=== PATIENT | female | born 1955 | race Caucasian/White ===

== ENCOUNTER → 2016-08-13 | Outpatient (CLI) | payer BC | END | disposition home or self-care (01) | LOC: C.LABSPEC 18:53 | PROVIDERS: ATTEND Nurse Practitioner Family | DX: L72.3 Sebaceous cyst (principal) ==

== ENCOUNTER → 2016-10-29 | Outpatient (CLI) | payer BC | END | disposition home or self-care (01) | LOC: C.PATHSPEC 17:38 | PROVIDERS: ATTEND Plastic Surgery | DX: L72.3 Sebaceous cyst (principal) ==

== ENCOUNTER 2017-10-24 04:31 | Emergency (ER) | payer BC, OTHER ==
[~2017-10-24] VITALS: Ht 157.5 cm; Wt 62.9 kg
[2017-10-24 04:36] VITALS: TEMP 36.5; Ht 157.5 cm; Wt 62.9 kg
--- NOTE | 2017-10-24 05:54 | EMERGENCY ROOM VISIT NOTE ---
History Report prepared by Tj: Arslan Carreon Under the Supervision of: Dr. Anahy Huitron D.O. First contact with patient: 05:05 Chief Complaint: BITE Stated Complaint: CAT BITE ON RIGHT HAND History of Present Illness The patient is a 62 year old female who presents to the Emergency Room with complaints of persistent right hand swelling secondary to a cat bite that occurred at 1999 last night. She states that she was playing with her cat when he bit her. She states that she woke up with right hand pain. She notes her cat has bitten her in the past. She states that she normally washes the bites with detergent, though she only put hydrogen peroxide on it this time. She states that she can hardly move her right fingers. She states the pain is radiating to her right forearm. She has taken two Aleve. Source of History: patient Onset: 1999 last night Position: hand (right) Quality: other (swelling) Timing: other (persistent) Note: Notes right hand pain, inability to move fingers, and right forearm pain. Review of Systems See HPI for pertinent positives & negatives. A total of 6 systems reviewed and were otherwise negative. Family History No pertinent family history Social History Smoking Status: Never Smoker Smokeless Tobacco Use: No Drug Use: none Marital Status: Housing Status: lives with significant other Current/Historical Medications Scheduled Amoxicillin & Pot Clavulanate (Augmentin 875-125 mg), 875 MG PO BID Amoxicillin & Pot Clavulanate (Augmentin 875-125 mg), 1 TAB PO BID Allergies Coded Allergies: No Known Allergies (Unverified , 10/27/17) Physical Exam Vital Signs Date Time Temp Pulse Resp B/P (MAP) Pulse Ox O2 Delivery O2 Flow Rate FiO2 10/24/17 08:06 80 17 128/62 99 Room Air 10/24/17 07:15 64 18 132/80 95 10/24/17 04:36 36.5 70 18 125/84 96 Room Air Physical Exam GENERAL: alert, well appearing, well nourished, no distress, non-toxic LUNGS: Clear to auscultation. Normal chest wall mechanics HEART: no murmurs, S1 normal and S2 normal ABDOMEN: abdomen soft, non-tender, normo-active bowel sounds, no masses, no rebound or guarding. SKIN: no rashes and no bruising UPPER EXTREMITIES: Obvious swelling noted to dorsum of right hand, single small puncture mohini, decreased ROM secondary to pain. LOWER EXTREMITIES: No pitting edema. NEURO EXAM: Normal sensorium, cranial nerves II-XII grossly intact, normal speech, no gross weakness of arms, no gross weakness of legs. Medical Decision & Procedures ER Provider Diagnostic Interpretation: Radiology results have been interpreted by the radiologist and reviewed by me. R LIZA MIN 3 VIEWS ROUTINE CLINICAL HISTORY: cat bite pain. Edema. COMPARISON: None. DISCUSSION: Mild degenerative change throughout the right hand and wrist. Dorsal soft tissue edema. No acute bony abnormality. Cortical margins are intact. IMPRESSION: Dorsal soft tissue edema. No acute bony abnormality. The above report was generated using voice recognition software. It may contain grammatical, syntax or spelling errors. Electronically signed by: Mohini Marie M.D. 10/24/2017 6:32 AM Dictated Date/Time: 10/24/2017 6:31 AM Laboratory Results 10/24/17 06:00 Red Blood Count 4.81, Mean Corpuscular Volume 86.9, Mean Corpuscular Hemoglobin 29.7, Mean Corpuscular Hemoglobin Concent 34.2, Mean Platelet Volume 10.4, Neutrophils (%) (Auto) 60.8, Lymphocytes (%) (Auto) 29.2, Monocytes (%) (Auto) 7.6, Eosinophils (%) (Auto) 1.9, Basophils (%) (Auto) 0.3, Neutrophils # (Auto) 5.44, Lymphocytes # (Auto) 2.61, Monocytes # (Auto) 0.68, Eosinophils # (Auto) 0.17, Basophils # (Auto) 0.03 10/24/17 06:00 Test 10/24/17 06:00 White Blood Count 8.95 K/uL (4.8-10.8) Red Blood Count 4.81 M/uL (4.2-5.4) Hemoglobin 14.3 g/dL (12.0-16.0) Hematocrit 41.8 % (37-47) Mean Corpuscular Volume 86.9 fL (80-100) Mean Corpuscular Hemoglobin 29.7 pg (25-34) Mean Corpuscular Hemoglobin Concent 34.2 g/dl (32-36) Platelet Count 236 K/uL (130-400) Mean Platelet Volume 10.4 fL (7.4-10.4) Neutrophils (%) (Auto) 60.8 % Lymphocytes (%) (Auto) 29.2 % Monocytes (%) (Auto) 7.6 % Eosinophils (%) (Auto) 1.9 % Basophils (%) (Auto) 0.3 % Neutrophils # (Auto) 5.44 K/uL (1.4-6.5) Lymphocytes # (Auto) 2.61 K/uL (1.2-3.4) Monocytes # (Auto) 0.68 K/uL (0.11-0.59) Eosinophils # (Auto) 0.17 K/uL (0-0.5) Basophils # (Auto) 0.03 K/uL (0-0.2) RDW Standard Deviation 43.9 fL (36.4-46.3) RDW Coefficient of Variation 13.8 % (11.5-14.5) Immature Granulocyte % (Auto) 0.2 % Immature Granulocyte # (Auto) 0.02 K/uL (0.00-0.02) Anion Gap 7.0 mmol/L (3-11) Est Creatinine Clear Calc Drug Dose 72.9 ml/min Estimated GFR () 107.1 Estimated GFR (Non- 92.4 BUN/Creatinine Ratio 17.1 (10-20) Calcium Level 9.1 mg/dl (8.5-10.1) Chemistry Specimen Hemolysis Laboratory results per my review. Medications Administered Medications (Trade) Dose Ordered Sig/Prem Route Start Time Stop Time Status Last Admin Dose Admin Ampicillin Sodium/ Sulbactam Sodium 3000 mg/Sodium Chloride 108 ml @ 200 mls/hr ONE ONCE IV 10/24/17 06:00 10/24/17 06:32 DC 10/24/17 06:20 200 MLS/HR ED Course 0541: The patient was evaluated in room A3. A complete history and physical exam was performed. 0600: Ordered Ampicillin Sodium/Sulbactam Sodium 3,000 mg/Sodium Chloride 108 ml @ 200 mls/hr IV 0720: I reassessed the patient at this time. I performed a bedside US. Findings showed no abscess or fluid collection. I discussed the results and treatment plan with the patient. I answered all pertaining questions that she had. She expressed understanding and verbalized agreement. The patient will be discharged home. Medical Decision Differential diagnoses include: wound infection, fracture, tendon injury, contusion, and cellulitis. Patient well-appearing here, with improved pain control pain patient had improved range of motion testing of the right hand. No overlying erythema or evidence of ascending lymphangitis. Patient afebrile here. Discussed with patient need for close follow-up given that this is her dominant hand and that this bite is a high risk of infection. Patient given IV Unasyn here and started on oral Augmentin. Labs otherwise reassuring. No evidence of additional occult trauma or foreign body on x-ray. No evidence on bedside ultrasound of drainable fluid collection. Discussed with patient symptoms to watch and return for, she verbalized understanding was agreeable with plan. I do not suspect tenosynovitis, abscess, deep space hand infection, overt cellulitis, ascending lymphangitis. Medication Reconcilliation Current Medication List: was personally reviewed by me Blood Pressure Screening Patient's blood pressure: Normal blood pressure Impression Primary Impression: Cat bite Scribe Attestation The scribe's documentation has been prepared under my direction and personally reviewed by me in its entirety. I confirm that the note above accurately reflects all work, treatment, procedures, and medical decision making performed by me. Departure Information Dispostion Home / Self-Care Prescriptions Amoxicillin & Pot Clavulanate (Augmentin 875-125 mg) 1 Tab Tab 875 MG PO BID for 7 Days, TAB Prov: Anahy Huitron DO 10/24/17 Referrals No Doctor, Assigned (PCP) Forms HOME CARE DOCUMENTATION FORM, IMPORTANT VISIT INFORMATION Patient Instructions ED Bite Cat, My [facility] Additional Instructions Please take the antibiotics as prescribed. Please consider using a probiotic or eating yogurt daily while on the antibiotic. Please drink plenty of water. You may use Tylenol and ibuprofen as needed for pain. Do not take ibuprofen on an empty stomach. The wound needs to be rechecked in 48 hours. If you noticed increased swelling, increased pain, increasing redness or redness streaking up into your arm, heavy drainage from the wound site, develop fevers, dizziness, nausea or vomiting, or you have any other new concerns please return to the ER immediately. Problem Qualifiers Primary Impression: Cat bite Encounter type: initial encounter Qualified Codes: W55.01XA - Bitten by cat , initial encounter
[2017-10-24] MEDS ORDERED: AMPICILLIN/SULBACTAM SOD INJ 3,000 MG in SODIUM CHLORIDE 0.9% 100ML 100 ML IV ONE (06:00)
[2017-10-24 06:19] LABS: BASO % 0.3 %; BASO ABS # 0.03 K/uL (0-0.2); EOS % 1.9 %; EOS ABS # 0.17 K/uL (0-0.5); HEMATOCRIT 41.8 % (37-47); HEMOGLOBIN 14.3 g/dL (12.0-16.0); IG# 0.02 K/uL (0.00-0.02); LYMPH % 29.2 %; LYMPH ABS # 2.61 K/uL (1.2-3.4); MEAN CELL VOLUME 86.9 fL (80-100); MEAN CORPUSCULAR HEMOGLOBIN 29.7 pg (25-34); MEAN CORPUSCULAR HGB CONC 34.2 g/dl (32-36); MEAN PLATELET VOLUME 10.4 fL (7.4-10.4); MONO % 7.6 %; MONO ABS # 0.68 K/uL (0.11-0.59); NEUT % 60.8 %; NEUT ABS # 5.44 K/uL (1.4-6.5); PLATELET COUNT 236 K/uL (130-400); RED CELL DISTRIBUTION WIDTH CV 13.8 % (11.5-14.5); RED CELL DISTRIBUTION WIDTH SD 43.9 fL (36.4-46.3); WHITE BLOOD COUNT 8.95 K/uL (4.8-10.8)
--- NOTE | 2017-10-24 06:33 | DIAGNOSTIC IMAGING REPORT ---
R HAND MIN 3 VIEWS ROUTINE CLINICAL HISTORY: cat bite pain. Edema. COMPARISON: None. DISCUSSION: Mild degenerative change throughout the right hand and wrist. Dorsal soft tissue edema. No acute bony abnormality. Cortical margins are intact. IMPRESSION: Dorsal soft tissue edema. No acute bony abnormality. The above report was generated using voice recognition software. It may contain grammatical, syntax or spelling errors. Electronically signed by: Frank Marie M.D. 10/24/2017 6:32 AM Dictated Date/Time: 10/24/2017 6:31 AM
[2017-10-24 06:37] LABS: CALCIUM 9.1 mg/dl (8.5-10.1); CREATININE 0.68 mg/dl (0.60-1.20); POTASSIUM 4.1 mmol/L (3.5-5.1)
[2017-10-24] MEDS ORDERED: AMOX875T PO (07:39)
[2017-10-24 08:06] VITALS: BP 128/62; PULSE 80; O2SAT 99
== END 2017-10-24 08:08 | disposition home or self-care (01) ==
LOC: C.EDB 04:33 → C.EDA 08:08
DX: S61.451A Open bite of right hand, initial encounter (principal); W55.01XA Bitten by cat, initial encounter

== ENCOUNTER 2017-10-25 11:33 | Emergency (ER) | payer OTHER ==
[~2017-10-25] VITALS: Ht 157.5 cm; Wt 64.1 kg
[~2017-10-25 11:33] MED LIST: AMOX875T PO
[2017-10-25 11:37] VITALS: TEMP 36.5; Ht 157.5 cm; Wt 64.1 kg
[2017-10-25] MEDS ORDERED: AMPICILLIN/SULBACTAM SOD INJ 3,000 MG in SODIUM CHLORIDE 0.9% 100ML 100 ML IV STA (12:09)
[2017-10-25 12:32] LABS: BASO % 0.4 %; BASO ABS # 0.03 K/uL (0-0.2); EOS % 1.3 %; HEMATOCRIT 40.2 % (37-47); HEMOGLOBIN 13.9 g/dL (12.0-16.0); IG# 0.01 K/uL (0.00-0.02); LYMPH % 32.9 %; LYMPH ABS # 2.56 K/uL (1.2-3.4); MEAN CELL VOLUME 86.3 fL (80-100); MEAN CORPUSCULAR HEMOGLOBIN 29.8 pg (25-34); MEAN CORPUSCULAR HGB CONC 34.6 g/dl (32-36); MEAN PLATELET VOLUME 10.3 fL (7.4-10.4); MONO % 11.3 %; MONO ABS # 0.88 K/uL (0.11-0.59); NEUT ABS # 4.19 K/uL (1.4-6.5); PLATELET COUNT 234 K/uL (130-400); RED CELL DISTRIBUTION WIDTH CV 13.7 % (11.5-14.5); RED CELL DISTRIBUTION WIDTH SD 43.2 fL (36.4-46.3); WHITE BLOOD COUNT 7.77 K/uL (4.8-10.8)
[2017-10-25 12:42] LABS: CALCIUM 9.3 mg/dl (8.5-10.1); CREATININE 0.67 mg/dl (0.60-1.20)
--- NOTE | 2017-10-25 15:41 | DIAGNOSTIC IMAGING REPORT ---
RIGHT HAND ULTRASONOGRAPHY CLINICAL HISTORY: Calcified. Swelling. Cellulitis. Possible abscess. COMPARISON STUDY: Conventional radiographic study dated 10/24/2017 FINDINGS: There is soft tissue edema over the dorsal aspect of the hand. There are no fluid collections to indicate a focal abscess. IMPRESSION: Dorsal soft tissue edema consistent with the clinical history of a cellulitis. No ultrasonographic evidence of a focal abscess Electronically signed by: Amador Wagner M.D. 10/25/2017 3:40 PM Dictated Date/Time: 10/25/2017 3:39 PM
--- NOTE | 2017-10-25 16:07 | EMERGENCY ROOM VISIT NOTE ---
ED Visit Note First contact with patient: 12:00 CHIEF COMPLAINT: Infection of the right hand HISTORY OF PRESENT ILLNESS: This 62-year-old female patient presents to the emergency department, ambulatory, complaining of worsening redness and swelling of the right hand and radiating up toward the arm. The patient was seen here 2 days ago for a cat bite on the right hand. At that time, she had lab work drawn and was given an IV dose of Unasyn. She was discharged home on Augmentin. She states she has taken 3 doses of the antibiotic, and followed up with her PCP today and noted worsening swelling and redness radiating up the wrist. She was encouraged to come to the emergency department for reevaluation and IV antibiotics. The area has become red, warm, and very painful. The patient denies fever, chills, nausea, or loss of appetite. Movement of the wrist and hand is moderately decreased because of the pain. The patient's tetanus shot is up to date. REVIEW OF SYSTEMS: A 10 system review of systems was performed with positives and pertinent negatives listed in the history of present illness. All other systems were reviewed and are negative. ALLERGIES: None MEDICATIONS: Augmentin PMH: None SOCIAL HISTORY: The patient lives locally with family. She denies drug, tobacco use. She does drink at least one glass of wine per night. PHYSICAL EXAM: Vital Signs: Reviewed Nurse's notes, Temperature 36.5C, vital signs stable, however BP elevated. GENERAL: This is a 62-year-old white female, in no acute distress, is non toxic in appearance, well-developed, well- nourished. SKIN: The right hand, wrist, and distal forearm is red, warm, very tender, and swollen. There is no lymphangitic streaking. There is no discharge. There is no fluctuance. There is mild induration. HEART: Regular rate and rhythm without murmur, gallop, or rub. LUNGS: Clear to auscultation bilaterally without wheezes, rales, or rhonchi. NEURO: Alert and oriented to person, place, and time. Normal sensation to light and sharp touch. Capillary reflex less than 2 seconds. Peripheral pulses 2 + bilaterally. RADIOLOGY: RIGHT HAND ULTRASONOGRAPHY CLINICAL HISTORY: Calcified. Swelling. Cellulitis. Possible abscess. COMPARISON STUDY: Conventional radiographic study dated 10/24/2017 FINDINGS: There is soft tissue edema over the dorsal aspect of the hand. There are no fluid collections to indicate a focal abscess. IMPRESSION: Dorsal soft tissue edema consistent with the clinical history of a cellulitis. No ultrasonographic evidence of a focal abscess Electronically signed by: Amador Wagner M.D. 10/25/2017 3:40 PM Dictated Date/Time: 10/25/2017 3:39 PM EMERGENCY DEPARTMENT COURSE: I examined the patient. She presents with a cellulitic infection following cat bite. She was recently seen here and given IV Unasyn and discharged on Augmentin. Her symptoms have been worsening despite the antibiotics, however she continues to deny any systemic symptoms including fever, chills, nausea, vomiting, loss of appetite. She denies any body aches. IV access obtained, repeat labs drawn. The patient was given a repeat dose of 3 g Unasyn. The redness and swelling was reassessed and remains at approximately the same level after antibiotics. A line was drawn at the edge of the redness. The patient did request further imaging to rule out abscess. An ultrasound was performed and reviewed by myself and radiologist as above. There is no abscess noted. The patient's labs showed a decrease in white blood cell count from [id number]. Her renal function and electrolytes were normal. The patient was reassessed after ultrasound and the redness and swelling does seem to have decreased. I discussed the findings in case with Dr. Larios. With these findings and given the lack of systemic symptoms, we agreed on the option to discharge the patient with her IV and return within 24 hours for recheck. I did offer this option, discontinuing the IV prior to discharge, or considering admission. The patient does agree to discharge with the IV and return. She is given strict return precautions, and encouraged to return sooner if she experiences any fever, body aches, or other worsening symptoms. Discharge instructions reviewed, patient was discharged home in good condition. I attest that I have personally reviewed the patient's current medication list. Blood Pressure Screening: Patient was found to have a slightly elevated blood pressure due to circumstances. I do not believe that the patient requires hypertension monitoring. Differential diagnosis includes cellulitis, abscess, DVT, superficial thrombus, septic joint, necrotizing fasciitis, burn, dermatitis, impetigo, erythema multiforme, bite, osteomyelitis, Esquivel-Dirk Syndrome, gangrene, malignancy , and others DIAGNOSIS: Cellulitis of the right hand, cat bite The chart was completed utilizing [employer] voice recognition software. Grammatical errors, random word insertions, pronoun errors, and incomplete sentences are an occasional consequence of this system due to software limitations, ambient noise, and hardware issues. Any formal questions or concerns about the content, text, or information contained within the body of this dictation should be directly addressed to the provider for clarification. Current/Historical Medications Scheduled Amoxicillin & Pot Clavulanate (Augmentin 875-125 mg), 875 MG PO BID Allergies Coded Allergies: No Known Allergies (Unverified , 10/25/17) Vital Signs Date Time Temp Pulse Resp B/P (MAP) Pulse Ox O2 Delivery O2 Flow Rate FiO2 10/25/17 16:36 66 16 177/101 97 10/25/17 15:45 68 15 176/101 98 Room Air 10/25/17 14:02 76 20 170/118 96 10/25/17 11:37 36.5 76 20 164/98 97 Room Air Laboratory Results 10/25/17 12:12 Red Blood Count 4.66, Mean Corpuscular Volume 86.3, Mean Corpuscular Hemoglobin 29.8, Mean Corpuscular Hemoglobin Concent 34.6, Mean Platelet Volume 10.3, Neutrophils (%) (Auto) 54.0, Lymphocytes (%) (Auto) 32.9, Monocytes (%) (Auto) 11.3, Eosinophils (%) (Auto) 1.3, Basophils (%) (Auto) 0.4, Neutrophils # (Auto ) 4.19, Lymphocytes # (Auto) 2.56, Monocytes # (Auto) 0.88, Eosinophils # (Auto ) 0.10, Basophils # (Auto) 0.03 10/25/17 12:12 Test 10/25/17 12:12 White Blood Count 7.77 K/uL (4.8-10.8) Red Blood Count 4.66 M/uL (4.2-5.4) Hemoglobin 13.9 g/dL (12.0-16.0) Hematocrit 40.2 % (37-47) Mean Corpuscular Volume 86.3 fL (80-100) Mean Corpuscular Hemoglobin 29.8 pg (25-34) Mean Corpuscular Hemoglobin Concent 34.6 g/dl (32-36) Platelet Count 234 K/uL (130-400) Mean Platelet Volume 10.3 fL (7.4-10.4) Neutrophils (%) (Auto) 54.0 % Lymphocytes (%) (Auto) 32.9 % Monocytes (%) (Auto) 11.3 % Eosinophils (%) (Auto) 1.3 % Basophils (%) (Auto) 0.4 % Neutrophils # (Auto) 4.19 K/uL (1.4-6.5) Lymphocytes # (Auto) 2.56 K/uL (1.2-3.4) Monocytes # (Auto) 0.88 K/uL (0.11-0.59) Eosinophils # (Auto) 0.10 K/uL (0-0.5) Basophils # (Auto) 0.03 K/uL (0-0.2) RDW Standard Deviation 43.2 fL (36.4-46.3) RDW Coefficient of Variation 13.7 % (11.5-14.5) Immature Granulocyte % (Auto) 0.1 % Immature Granulocyte # (Auto) 0.01 K/uL (0.00-0.02) Anion Gap 5.0 mmol/L (3-11) Est Creatinine Clear Calc Drug Dose 74.6 ml/min Estimated GFR () 107.7 Estimated GFR (Non- 92.9 BUN/Creatinine Ratio 19.2 (10-20) Calcium Level 9.3 mg/dl (8.5-10.1) Medications Administered Medications (Trade) Dose Ordered Sig/Prem Route Start Time Stop Time Status Last Admin Dose Admin Ampicillin Sodium/ Sulbactam Sodium 3000 mg/Sodium Chloride 108 ml @ 200 mls/hr ONE STAT IV 10/25/17 12:09 10/25/17 12:41 DC 10/25/17 12:09 200 MLS/HR Departure Information Impression Primary Impression: Cat bite Additional Impression: Cellulitis Dispostion Home / Self-Care Condition GOOD Referrals Norris Joseph M.D. (PCP) Patient Instructions ED Infec Skin Cellulitis, My [facility] Additional Instructions You were seen in the emergency department today for cellulitis from a cat bite. You were given a second dose of IV antibiotics. Continue Augmentin as prescribed. Keep the arm elevated and you may use ice to help with swelling. Remove your arm from the sling several times per day to stretch the extremities and move the joints. Ibuprofen(Motrin, Advil) may be used for fever or pain. Use 600mg every six hours as needed. Take with food. Avoid using more than 2400mg in a 24 hour period. Do not use 2400mg per day for more than three consecutive days without physician direction. Prolonged inappropriate use can lead to stomach upset or ulcers. (AND/OR) Acetaminophen(Tylenol) may be used for fever or pain. Use 1000mg every six hours as needed. Avoid using more than 3000mg in a 24 hour period. Keep the IV in place and attempt moving the wrist and hand more than necessary. No substances through the IV unless performed at the ED. Follow-up within 24 hours in the emergency department for reevaluation. As discussed, you should come in after 11 AM so I can reassess the injury. Problem Qualifiers Primary Impression: Cat bite Encounter type: initial encounter Qualified Codes: W55.01XA - Bitten by cat , initial encounter Additional Impression: Cellulitis Site of cellulitis: extremity Site of cellulitis of extremity: upper extremity Laterality: right Qualified Codes: L03.113 - Cellulitis of right upper limb
[2017-10-25 16:36] VITALS: BP 177/101; PULSE 66; O2SAT 97
[2017-10-26] MEDS ORDERED: AMOX875T PO (12:56)
== END 2017-10-25 16:45 | disposition home or self-care (01) ==
LOC: C.EDB 11:35 → C.EDD 16:45
DX: L03.113 Cellulitis of right upper limb (principal); W55.01XA Bitten by cat, initial encounter

== ENCOUNTER 2017-10-26 11:39 | Emergency (ER) | payer OTHER ==
[2017-10-26 11:43] VITALS: TEMP 36.6
[2017-10-26] MEDS ORDERED: AMPICILLIN/SULBACTAM SOD INJ 3,000 MG in SODIUM CHLORIDE 0.9% 100ML 100 ML IV STA (12:12)
[2017-10-26] MEDS ORDERED: AMOX875T PO (12:56)
--- NOTE | 2017-10-26 13:00 | EMERGENCY ROOM VISIT NOTE ---
ED Visit Note First contact with patient: 11:53 CHIEF COMPLAINT: Infection of the right hand HISTORY OF PRESENT ILLNESS: This 62-year-old female patient presents to the emergency department, ambulatory, complaining of ongoing redness and swelling of the right hand. The patient was seen here yesterday and had IV antibiotics due to the infection from a cat bite. She was sent home with the IV in place and advised to return today for a wound recheck and another dose of IV antibiotics. The redness remains, however is improved from yesterday. The swelling and pain has also improved. The patient is getting more range of motion in her fingers, hand, and wrist. The patient has continued Augmentin as prescribed. REVIEW OF SYSTEMS: A 10 system review of systems was performed with positives and pertinent negatives listed in the history of present illness. All other systems were reviewed and are negative. ALLERGIES: None MEDICATIONS: Augmentin PMH: Cellulitis SOCIAL HISTORY: The patient lives locally with family. She denies drug, tobacco use. She admits to occasional alcohol use. PHYSICAL EXAM: Vital Signs: Reviewed Nurse's notes, Temperature 36.6C, vital signs stable. GENERAL: This is a 62-year-old white female, in no acute distress , is non toxic in appearance, well-developed, well-nourished. SKIN: The right hand is slightly less erythematous, warm, and tender than yesterday. The swelling has improved. There is no lymphangitic streaking. There is no discharge. There is no fluctuance. There is no induration. HEART: Regular rate and rhythm without murmur, gallop, or rub. LUNGS: Clear to auscultation bilaterally without wheezes, rales, or rhonchi. NEURO: Alert and oriented to person, place, and time. Normal sensation to light and sharp touch. Capillary reflex less than 2 seconds. Peripheral pulses 2 + bilaterally. EMERGENCY DEPARTMENT COURSE: I examined the patient. She was given a repeat dose of 3 g Unasyn while here in the emergency department. She was monitored for approximately 45 minutes after antibiotics. The swelling and redness does seem to have improved mildly while she is here. She would like to keep the IV in place for another day and will return tomorrow for repeat follow-up. I do feel that this is reasonable given the severity of the infection. It is improving, however the patient is concerned that p.o. antibiotics will not be enough. Discharge instructions reviewed, the patient was discharged home in good condition. I attest that I have personally reviewed the patient's current medication list. Blood Pressure Screening: Patient was found to have a slightly elevated blood pressure due to circumstances. I do not believe that the patient requires hypertension monitoring. Differential diagnosis includes cellulitis, abscess, DVT, superficial thrombus, septic joint, necrotizing fasciitis, burn, dermatitis, impetigo, erythema multiforme, bite, osteomyelitis, Esquivel-Dirk Syndrome, gangrene, malignancy , and others DIAGNOSIS: Cellulitis of the right hand, cat bite The chart was completed utilizing [employer] voice recognition software. Grammatical errors, random word insertions, pronoun errors, and incomplete sentences are an occasional consequence of this system due to software limitations, ambient noise, and hardware issues. Any formal questions or concerns about the content, text, or information contained within the body of this dictation should be directly addressed to the provider for clarification. Current/Historical Medications Scheduled Amoxicillin & Pot Clavulanate (Augmentin 875-125 mg), 875 MG PO BID Amoxicillin & Pot Clavulanate (Augmentin 875-125 mg), 1 TAB PO BID Allergies Coded Allergies: No Known Allergies (Unverified , 10/25/17) Vital Signs Date Time Temp Pulse Resp B/P (MAP) Pulse Ox O2 Delivery O2 Flow Rate FiO2 10/26/17 13:14 59 18 168/97 94 10/26/17 11:43 36.6 70 20 153/89 96 Room Air Medications Administered Medications (Trade) Dose Ordered Sig/Prem Route Start Time Stop Time Status Last Admin Dose Admin Ampicillin Sodium/ Sulbactam Sodium 3000 mg/Sodium Chloride 108 ml @ 200 mls/hr NOW STAT IV 10/26/17 12:12 10/26/17 12:44 DC 10/26/17 12:23 200 MLS/HR Departure Information Impression Primary Impression: Cellulitis Additional Impression: Cat bite of hand Dispostion Home / Self-Care Condition GOOD Prescriptions Amoxicillin & Pot Clavulanate (Augmentin 875-125 mg) 1 Tab Tab 1 TAB PO BID for 3 Days, #6 TAB to extend previous prescription to a total of 10 days. Prov: Lisseth Powers, PAMalC 10/26/17 Referrals Norris Joseph M.D. (PCP) Patient Instructions My [facility] Additional Instructions You were seen in the emergency department today for a repeat dose of IV antibiotics and wound recheck. As discussed, the symptoms do seem to have improved. Please continue to monitor for worsening swelling, redness, or purulent drainage. Return to the emergency department immediately for any systemic symptoms including fever, chills, body aches, nausea, vomiting, decreased appetite, or other concerning symptoms. Continue to use the arm sling to help with elevation. Continue taking antibiotics as directed. You should extend the course to 10 days total. No medications/fluids or other substances through the IV except from the ED. Ibuprofen(Motrin, Advil) may be used for fever or pain. Use 600mg every six hours as needed. Take with food. Avoid using more than 2400mg in a 24 hour period. Do not use 2400mg per day for more than three consecutive days without physician direction. Prolonged inappropriate use can lead to stomach upset or ulcers. (AND/OR) Acetaminophen(Tylenol) may be used for fever or pain. Use 1000mg every six hours as needed. Avoid using more than 3000mg in a 24 hour period. Problem Qualifiers Primary Impression: Cellulitis Site of cellulitis: extremity Site of cellulitis of extremity: upper extremity Laterality: right Qualified Codes: L03.113 - Cellulitis of right upper limb Additional Impression: Cat bite of hand Encounter type: subsequent encounter Laterality: right Qualified Codes: S61.451D - Open bite of right hand, subsequent encounter; W55.01XD - Bitten by cat, subsequent encounter
[2017-10-26 13:14] VITALS: BP 168/97; PULSE 59; O2SAT 94
== END 2017-10-26 13:16 | disposition home or self-care (01) ==
LOC: C.EDB 11:40 → C.EDD 13:16
DX: L03.113 Cellulitis of right upper limb (principal); S61.451A Open bite of right hand, initial encounter; W55.01XA Bitten by cat, initial encounter

== ENCOUNTER 2017-10-27 14:21 | Emergency (ER) | payer OTHER ==
[~2017-10-27] VITALS: Ht 157.5 cm; Wt 65.0 kg
[2017-10-27 14:26] VITALS: TEMP 36.4; Ht 157.5 cm; Wt 65.0 kg
[2017-10-27] MEDS ORDERED: AMPICILLIN/SULBACTAM SOD INJ 3,000 MG in SODIUM CHLORIDE 0.9% 100ML 100 ML IV STA (14:55)
--- NOTE | 2017-10-27 15:45 | EMERGENCY ROOM VISIT NOTE ---
History First contact with patient: 14:46 Chief Complaint: WOUND INFECTION Stated Complaint: INFECTED CAT BITE Nursing Triage Summary: patient to ED for ix abx, states "I've had three infusions now, I was supposed to get abx again for a cat bite on my right hand." iv access already established History of Present Illness The patient is a 62 year old female who presents to the Emergency Room via private vehicle with complaints of "infected cat bite". The patient states that she is here to receive another dose of potential IV antibiotics for a right hand cellulitis which began from a cat bite. This was her cat. No concern over rabies. She believes her tetanus is up-to-date. She notes interval improvement in her right hand infection, swelling and pain. She now only notes a small dime sized area of erythema on the dorsum of the right hand. Review of Systems A complete 6-point Review of Systems was discussed with the patient, with pertinent positives and negatives listed in the History of Present Illness. All remaining Review of Systems questions can be considered negative unless otherwise specified. Past Medical/Surgical History No pertinent Family History No pertinent family history Non contributory Social History Smoking Status: Never Smoker Drug Use: none Marital Status: Housing Status: lives with significant other Current/Historical Medications Scheduled Amoxicillin & Pot Clavulanate (Augmentin 875-125 mg), 875 MG PO BID Amoxicillin & Pot Clavulanate (Augmentin 875-125 mg), 1 TAB PO BID Physical Exam Vital Signs Date Time Temp Pulse Resp B/P (MAP) Pulse Ox O2 Delivery O2 Flow Rate FiO2 10/27/18 14:26 36.4 59 20 175/95 97 Room Air Physical Exam VITAL SIGNS - Vital signs and nursing notes were reviewed. Stable. GENERAL - 62-year-old female appearing her stated age who is in no acute distress. Communicates well with provider and answers questions appropriately. SKIN -there is a subcentimeter area of erythema with a small punctate black center on the dorsum of the right hand. HEAD - NC/AT. EYES - PERRL with EOMI bilaterally. Sclera anicteric. EARS - No deformities of external structures noted on gross examination bilaterally. EXTREMITIES - No clubbing or peripheral cyanosis. No pretibial edema present. + 5/5 strength noted in UE/LE bilaterally. NEUROLOGIC - Cranial nerves II through XII grossly intact. Sensory intact to light touch throughout. Minimal tenderness of the dorsum of the right hand. No appreciable foreign body or fluctuance. There is a line drawn that was evidence of previous erythema spreading but this is now much much improved. PSYCH - A&O, and cooperates fully with examiner. Pt is very pleasant and interacts well with examiner. Medical Decision & Procedures Medications Administered Medications (Trade) Dose Ordered Sig/Prem Route Start Time Stop Time Status Last Admin Dose Admin Ampicillin Sodium/ Sulbactam Sodium 3000 mg/Sodium Chloride 108 ml @ 200 mls/hr NOW STAT IV 10/27/17 14:55 10/27/17 15:27 DC 10/27/17 15:26 200 MLS/HR Medical Decision Patient was seen and evaluated as above in room D1. Review was performed of nursing notes and vital signs. After obtaining a thorough history and physical examination the above work up was performed. She presents to us today with improving right hand cellulitic infection. I reviewed previous visits. She was given 1 more dose of IV Unasyn. She is to hold her tonight dose of Augmentin and resume this tomorrow. She appears stable for outpatient management to follow with her family doctor on Wednesday. She was to return with worsening. She was educated upon worrisome symptoms which to return. Vital signs are stable. She is afebrile. The patient was educated upon management, had questions answered prior to discharge, and was discharged home in good condition. In the evaluation and treatment of this patient the following differential diagnoses were entertained: Worsening cellulitis, retained foreign body, tetanus , rabies, among others per Impression Primary Impression: Encounter for wound re-check Departure Information Dispostion Home / Self-Care Condition GOOD Referrals Norris Joseph M.D. (PCP) Patient Instructions My [facility] Additional Instructions You were seen in the emergency department for your last dose of IV antibiotics for the infection on your right hand. I do recommend continuing the Augmentin, with the next dose being tomorrow morning. Please continue to watch for increased redness, swelling, warmth, fevers or chills and if these develop please return. Please call your family doctor to schedule follow-up so that continued wound rechecks until complete resolution of the infection can be performed. Again if this worsens please return. Thank you for your time.
[2017-10-27 16:04] VITALS: BP 180/101; PULSE 59; O2SAT 97
== END 2017-10-27 16:04 | disposition home or self-care (01) ==
LOC: C.EDB 14:23 → C.EDD 16:04
DX: L08.9 Local infection of the skin and subcutaneous tissue, unspecified (principal); S61.451A Open bite of right hand, initial encounter; W55.01XA Bitten by cat, initial encounter

== ENCOUNTER 2017-10-29 15:05 | Emergency (ER) | payer OTHER ==
[~2017-10-29] VITALS: Ht 162.6 cm; Wt 64.7 kg
[2017-10-29 15:16] VITALS: TEMP 36.7; Ht 162.6 cm; Wt 64.7 kg
[2017-10-29 15:56] VITALS: BP 168/97; PULSE 64; O2SAT 95
--- NOTE | 2017-10-29 16:22 | EMERGENCY ROOM VISIT NOTE ---
ED Visit Note First contact with patient: 15:26 CHIEF COMPLAINT: Cat bite right hand HISTORY OF PRESENT ILLNESS: This 62-year-old female has been following closely in the emergency room for a cat bite she sustained from her own cat on her right hand. The patient is currently on Augmentin. The patient was instructed yesterday at her last ER visit to now follow-up with family doctor. She has an appointment on Wednesday. The patient was concerned because today she noticed some redness and swelling just around the puncture wound. There is been no drainage. REVIEW OF SYSTEMS: 6 system review was performed and was negative unless stated otherwise in history of present illness. PMH: The patient is healthy; EMR was reviewed and there are no changes from prior ER visit. SOCIAL HISTORY: Patient lives at home. PHYSICAL EXAM: Vital Signs: Were reviewed reviewed Nurse's notes. GENERAL: 62- year-old female appears in no acute distress. MENTAL STATUS: Alert and oriented 3. RIGHT HAND: There is a small scab noted on the dorsal aspect centrally loaded located. There is a small amount of erythema around this area. There is slight fluctuance when palpated. EMERGENCY DEPARTMENT COURSE: The patient was evaluated. The area was cleansed with alcohol. The area was lanced with a 27-gauge needle. A small amount of purulent fluid was expressed. Antibiotic ointment and a bandage was applied. The patient was discharged home in stable condition. DIAGNOSIS: Cat bite right hand DISCHARGE INSTRUCTIONS & TREATMENT: Warm compresses intermittently to the right hand if this small pustule persists. This will promote drainage. Continue Augmentin as prescribed. Keep scheduled appointment with your family doctor on Wednesday for recheck. Current/Historical Medications Scheduled Amoxicillin & Pot Clavulanate (Augmentin 875-125 mg), 875 MG PO BID Amoxicillin & Pot Clavulanate (Augmentin 875-125 mg), 1 TAB PO BID Allergies Coded Allergies: No Known Allergies (Unverified , 10/27/17) Vital Signs Date Time Temp Pulse Resp B/P (MAP) Pulse Ox O2 Delivery O2 Flow Rate FiO2 10/29/17 15:56 64 17 168/97 95 10/29/17 15:16 36.7 66 20 154/87 97 Room Air Departure Information Impression Primary Impression: Cat bite Dispostion Home / Self-Care Condition GOOD Referrals Guillard, Norris,M.D. (PCP) Forms HOME CARE DOCUMENTATION FORM, IMPORTANT VISIT INFORMATION Patient Instructions My [facility] Additional Instructions Keep scheduled appointment with your family doctor on Wednesday. Warm compresses to the affected area intermittently to promote draining if needed.
== END 2017-10-29 15:57 | disposition home or self-care (01) ==
LOC: C.EDB 15:07 → C.EDD 15:57
DX: S61.451A Open bite of right hand, initial encounter (principal); W55.01XA Bitten by cat, initial encounter